=== PATIENT | male | born 1985 | race Caucasian/White ===

== ENCOUNTER 2016-06-21 11:29 | Outpatient (RCR) | payer BC | END 2016-06-21 16:00 | disposition home or self-care (01) | LOC: WOUNDCARE 11:29 | PROVIDERS: ATTEND Surgery | DX: L97.112 Non-pressure chronic ulcer of right thigh with fat layer exposed (principal); L02.415 Cutaneous abscess of right lower limb | CPT/HCPCS: 11042; 11045; 17250; 97605; 99212 ==

== ENCOUNTER → 2019-06-27 | Outpatient (CLI) | payer BC | LOC: LABNPT 14:15 | PROVIDERS: ATTEND Nurse Practitioner Family | DX: R50.81 Fever presenting with conditions classified elsewhere (principal); M79.18 Myalgia, other site; R53.83 Other fatigue; R06.09 Other forms of dyspnea | CPT/HCPCS: 87430; 87635; 87804 ==

== ENCOUNTER → 2021-12-17 | Outpatient (CLI) | payer OTHER ==
[~2021-12-17] VITALS: Ht 180.3 cm; Wt 104.5 kg
[~2021-12-17] MED LIST: GADOTERATE 0.5 MMOL/ML (CLARISCAN) 15 ML VIAL IV ONE; IOHEXOL 240 MGI/ML 50 ML (OMNIPAQUE) VIAL IV ONE; LIDOCAINE 1% INJ 10 ML VIAL INJ ONE; LIDOCAINE 1% INJ 10 ML VIAL ONE
--- NOTE | 2021-12-17 16:57 | Diagnostic Imaging Report ---
MRI RT UPPER EXT JOINT WITH Technique: Multiplanar, multisequence MR imaging of the right shoulder was performed with intra-articular contrast. Comparison: None available. Indication: Right shoulder pain Findings: Rotator cuff: There is a very small 5 mm focal intrasubstance tear in the posterior aspect of the supraspinatus. The majority of the supraspinatus remains intact. Infraspinous, teres minor and subscapularis are intact. There is no rotator cuff muscle atrophy or edema. Glenoid labrum: No chondrolabral separation or paralabral cyst. No intrasubstance tear of the labrum. The inferior glenohumeral ligaments are intact. Long head of biceps: Long head of biceps is normally positioned within the bicipital groove. The intracapsular segment is intact. Bones and cartilage: Humeral head is normal in morphology without fracture or focal osseous lesion. No glenohumeral chondromalacia. The acromioclavicular joint is normal in alignment without significant degenerative change. Soft tissues: No proliferative synovitis or loose bodies in the glenohumeral joint. No MRI findings to suggest adhesive capsulitis. No fluid or inflammatory like signal within the subacromial/subdeltoid space to indicate bursitis. IMPRESSION: 1. No tear in the labrum or glenohumeral ligaments. 2. Long head of biceps is intact. 3. There is a focal 5 mm intrasubstance tear in the posterior aspect of the supraspinatus. Otherwise, rotator cuff is normal. Dictated by: Dictated on workstation # [id number]
--- NOTE | 2021-12-18 08:25 | Diagnostic Imaging Report ---
Indication: Right shoulder pain. Patient brought to the fluoroscopy suite placed on table in the supine position. Skin of the right shoulder was prepped and draped in usual sterile fashion. Small amount of 1% lidocaine was utilized for local anesthesia. 20-gauge needle was advanced into the right shoulder at the rotator interval. A 15 mL solution of iodinated contrast, normal saline and gadolinium was injected under fluoroscopic observation. Total of 11 seconds fluoroscopic time was utilized. Needle was removed. Hemostasis was obtained. Patient tolerated the procedure well and was sent to MRI in satisfactory condition. IMPRESSION: Successful right shoulder injection of gadolinium contrast solution, using fluoroscopy. Dictated by: Dictated on workstation # [id number]
== END ==
LOC: RAD 13:06
PROVIDERS: ATTEND Family Medicine Sports Medicine
DX: S46.011A Strain of muscle(s) and tendon(s) of the rotator cuff of right shoulder, initial encounter (principal); S43.431A Superior glenoid labrum lesion of right shoulder, initial encounter; S52.124A Nondisplaced fracture of head of right radius, initial encounter for closed fracture; X58.XXXA Exposure to other specified factors, initial encounter
CPT/HCPCS: 23350; 73040; 73222